=== PATIENT | female | born 1975 | race Two or more races ===

== ENCOUNTER 2019-06-17 08:52 | Outpatient (CLI) | payer OTHER ==
[2019-06-20] MEDS ORDERED: ANTICONCEPTIC PO (15:03)
== END 2019-06-17 09:03 | disposition home or self-care (01) ==
LOC: LAB 08:52
DX: K29.00 Acute gastritis without bleeding (principal); K80.00 Calculus of gallbladder with acute cholecystitis without obstruction; K59.09 Other constipation; Z12.11 Encounter for screening for malignant neoplasm of colon

== ENCOUNTER → 2019-06-18 11:34 | Outpatient (CLI) | payer OTHER ==
[~2019-06-18 11:34] MED LIST: ANTICONCEPTIC PO
== END | disposition home or self-care (01) ==
LOC: EKG 11:34
DX: I10 Essential (primary) hypertension (principal)

== ENCOUNTER 2019-06-25 11:05 | Day surgery (SDC) | payer OTHER | END 2019-06-25 14:50 | disposition home or self-care (01) | LOC: AMB-ENDOS 11:05 | DX: D13.2 Benign neoplasm of duodenum (principal); K29.50 Unspecified chronic gastritis without bleeding; K64.4 Residual hemorrhoidal skin tags; Z12.11 Encounter for screening for malignant neoplasm of colon ==

== ENCOUNTER 2019-06-27 06:00 | Day surgery (SDC) | payer OTHER ==
[~2019-06-27] VITALS: Ht 167.6 cm; Wt 79.4 kg
[2019-06-27] MEDS ORDERED: TRI-SPRINTEC T1 EACH PO (07:58)
[2019-06-27] MEDS ORDERED: KETOROLAC TROME10 MG PO (12:23)
[2019-06-27] MEDS ORDERED: PERCOCET 5-3251 EACH PO (12:24)
[2019-06-27] MEDS ORDERED: ZANTAC150 M3 PO (12:25)
== END 2019-06-27 13:00 | disposition home or self-care (01) ==
LOC: CIR.AMB 06:00 → SURH 06:08 → O/R 06:08 → SURH 11:15 → EDSTATUS 13:00 → CIR.AMB 13:00 → O/R 14:20
DX: K80.10 Calculus of gallbladder with chronic cholecystitis without obstruction (principal)